=== PATIENT | female | born 1970 | race Caucasian/White ===

== ENCOUNTER 2018-10-21 05:47 | Observation (INO) | payer BC, OTHER ==
[2018-10-14 12:16] VITALS: BMI 28.5
[2018-10-21] MEDS ORDERED: LIDOCAINE 1% 20 ML VIAL (10MG/ML) FOR IV START INTRADERMA ONE ×2 (06:40)
[2018-10-21] MEDS ORDERED: LACTATED RINGERS 1,000 ML IV ONE ×2 (06:40)
[2018-10-21] MEDS ORDERED: DEXAMETHASONE SOD PHOSPHATE 10 MG/ML 1 ML VIAL IV ONE (06:50)
[2018-10-21] MEDS ORDERED: SCOPOLAMINE 1.5MG/72HR PATCH TRANSDERM ONE (06:50)
[2018-10-21] MEDS ORDERED: ONDANSETRON 4 MG/2 ML VIAL IVP ONE ×2 (06:50→09:31)
--- NOTE | 2018-10-21 07:10 | P.HPOB ---
History of Present Illness H&P Date: 10/21/18 Chief Complaint: breast cancer 48 year old presents for total laparoscopic hysterectomy bilateral salpingo-oopherectomy with da mary and diagnostic cystoscopy. Review of Systems All systems: negative Constitutional: Denies chills, Denies fever Eyes: denies blurred vision, denies pain Ears, nose, mouth and throat: Denies headache, Denies sore throat Cardiovascular: Denies chest pain, Denies shortness of breath Respiratory: Denies cough Gastrointestinal: Denies abdominal pain, Denies diarrhea, Denies nausea, Denies vomiting Genitourinary: Denies dysuria, Denies hematuria Musculoskeletal: Denies myalgias Integumentary: Denies pruritus, Denies rash Neurological: Denies numbness, Denies weakness Psychiatric: Denies anxiety, Denies depression Endocrine: Denies fatigue, Denies weight change Past Medical History Past Medical History: Cancer, Deep Vein Thrombosis (DVT), Hypertension Additional Past Medical History / Comment(s): Hx SF blood clot leg 2017. Hx Breast CA, had chemo & radiation 2017; neuropathy fingers/toes. Hx HTN, no Rx since 2017. Varicose Veins. Hx Low K+, takes Klor-Con, family hx of this also. History of Any Multi-Drug Resistant Organisms: None Reported Past Surgical History: Breast Surgery, Section, Orthopedic Surgery Additional Past Surgical History / Comment(s): Exc Cyst Rt Wrist. Rt Lumpectomy. Past Anesthesia/Blood Transfusion Reactions: Motion Sickness, Postoperative Nausea & Vomiting (PONV) Smoking Status: Former smoker - Past Family History Father Sister(s) Family Medical History: Cancer Additional Family Medical History / Comment(s): father - bladder, sister - breast Medications and Allergies Home Medications Medication Instructions Recorded Confirmed Type Cholecalciferol [Vitamin D3] 400 unit PO DAILY 10/14/18 10/14/18 History Gabapentin [Neurontin] 300 mg PO BID 10/14/18 10/14/18 History Hydrochlorothiazide [Hydrodiuril] 25 mg PO DAILY 10/14/18 10/15/18 History Letrozole [Femara] 2.5 mg PO DAILY 10/14/18 10/14/18 History Lupron Inj (Unknown Dose) 1 injection INJ Q90D 10/14/18 History Potassium Chloride [Klor-Con M15] 30 meq PO TID 10/14/18 10/14/18 History Vitamin B-6 (Unknown Dose) 1 tab PO DAILY 10/14/18 History Zoledronic Acid [Zometa] 0 mg INJ Q180D 10/14/18 10/14/18 History Allergies Allergy/AdvReac Type Severity Reaction Status Date / Time amoxicillin Allergy Rash/Hives Verified 10/21/18 06:20 ciprofloxacin [From Cipro] Allergy Rash/Hives Verified 10/21/18 06:20 clarithromycin [From Biaxin] Allergy Rash/Hives Verified 10/21/18 06:20 clavulanic acid Allergy Rash/Hives Verified 10/21/18 06:20 [From Augmentin] nitrofurantoin Allergy Rash/Hives Verified 10/21/18 06:20 [From Macrobid] Sulfa (Sulfonamide Allergy Rash/Hives Verified 10/21/18 06:20 Antibiotics) Exam Osteopathic Statement: *. No significant issues noted on an osteopathic structural exam other than those noted in the History and Physical/Consult. Intake and Output 10/20/18 10/21/18 10/21/18 22:59 06:59 14:59 Other: Weight 91.5 kg Heart: RRR Lungs: CTAB Abdomen: soft, nontender Extremeties: neg isaías's Results Result Diagrams: 10/21/18 06:40 Assessment and Plan (1) Breast cancer Current Visit: Yes Status: Acute Code(s): C50.919 - MALIGNANT NEOPLASM OF UNSP SITE OF UNSPECIFIED FEMALE BREAST SNOMED Code(s): 408203341 Plan: 1. [facility] with sae hernandez, diagnostic cystoscopy, possible [facility]SO
[2018-10-21] MEDS ORDERED: SUCCINYLCHOLINE CHLORIDE 100 MG/5 ML SYR IV ONE (07:25)
[2018-10-21] MEDS ORDERED: PROPOFOL 10 MG/ML 20 ML VIAL IV ONE (07:25)
[2018-10-21] MEDS ORDERED: ROCURONIUM BROMIDE 10 MG/ML 10 ML VIAL IV ONE (07:25)
[2018-10-21] MEDS ORDERED: KETOROLAC 30 MG/ML 1 ML VIAL ONE (07:25)
[2018-10-21] MEDS ORDERED: MIDAZOLAM 2 MG/2 ML VIAL ONE (07:25)
[2018-10-21] MEDS ORDERED: fentaNYL (PF) 50 MCG/ML 2 ML AMP ONE (07:25)
[2018-10-21] MEDS ORDERED: HYDROmorphone (PF) 1 MG/ML ONE (07:25)
[2018-10-21] MEDS ORDERED: BUPIVACAINE (PF) 0.25% 30 ML VIAL SQ ONE (07:55)
--- NOTE | 2018-10-21 09:06 | P.OP ---
Date of Procedure: 10/21/18 Preoperative Diagnosis: 1. Breast cancer-ER/IN+ Postoperative Diagnosis: 1. Breast cancer-ER/IN+ Procedure(s) Performed: Total Laparoscopic Hysterectomy Bilateral Salpingo-oopherectomy using da sammi and diagnostic cystoscopy Anesthesia: BRENDA Surgeon: Nathalie Armenta Digital Media Sales Consultant #1: Sumeet Patrick Estimated Blood Loss (ml): 10 IV fluids (ml): 1,000 Urine output (ml): 75 Pathology: other (Uterus, cervix, bilateral tubes and ovaries) Condition: stable Disposition: PACU Operative Findings: Normal appearing uterus, tubes, ovaries. Description of Procedure: Patient taken the operating room where general anesthesia was obtained without difficulty. She is prepped and draped in normal sterile fashion dorsal lithotomy position, legs placed in the Vicente stirrups. Weighted speculum placed in the vagina and the anterior lip the cervix was grasped with single-tooth tenaculum. The uterus sounded to 6 cm and the cervix diameter was 3 cm. The appropriate manipulator tip and ring were placed on the Zeinab manipulator. The Zeinab manipulator was then placed in the uterus. Betancourt catheter was also placed. Attention was then turned to the abdomen and gloves were changed. A 5 mm s upraumbilical incision was made the scalpel and a 5 mm optical trocar was placed under direct visualization. 10 cm to the right of this and 2 cm down a 5 mm incision was made and 8 mm da Sammi port was placed under direct visualization. Same measurements on the opposite side of the patient's abdomen, the 5 mm incision was made and 8 mm da Sammi port was placed under direct visualization. In the left upper quadrant a 10 mm incision was made and a 10 mm optical trocar was placed under direct visualization. The 5 mm optical trocar was then replaced with the 8 mm da Sammi camera port. The robot was docked on patient's right side. The camera was introduced and then the monopolar curved scissor and [place] bipolar placed under direct visualization. I broke scrub and went to the physician console. The left infundibulopelvic ligament was cauterized with the [place] bipolar and cut with monopolar curved scissors. The left round ligament was cauterized with the [place] bipolar and cut with monopolar curved scissors. The posterior leaf of the broad ligament was taken down using the monopolar curved scissors. Anterior leaf of the broad ligament was then taken down using the monopolar curved scissors. The uterine artery was cauterized with the [place] bipolar and cut with monopolar curved scissors. The bladder flap was then started using the monopolar curved scissors. Attention was then turned to the right side of the patient's anatomy and the right infundibular pelvic ligament was cauterized with the [place] bipolar and cut with monopolar curved scissors. The right round ligament was cauterized with the [place] bipolar and cut with monopolar curved scissors. Posterior leaf of the broad ligament was taken down using the monopolar curved scissors and the anterior leaf was taken down using the monopolar curved scissors. The uterine artery was cauterized the [place] bipolar cut with monopolar curved scissors. The bladder flap was then finished on this side. Anterior colpotomy was made using the monopolar curved scissors. The rest of the uterus was from the vaginal cuff by following the ring around with the monopolar curved scissors through the uterosacral ligaments back to the anterior portion. Once the uterus and cervix were amputated they were pulled through the vaginal cuff. Hemostasis was assured. The instruments were changed for the Cardier forcep and the etienne suture cut. The vaginal cuff was then closed using O stratafix barbed suture in a running fashion. Hemostasis was again assured and the pelvis was irrigated. All instruments were removed from the abdomen and the robot was undocked. I scrubbed back in to perform a cystoscopy. There were jets from both ureteral orifices. The abdominal incisions were closed with 4-0 Vicryl in a subcuticular fashion. Patient tolerated the procedure well, sponge and instrument counts correct 2 and she was taken to recovery room in stable condition condition
[2018-10-21] MEDS ORDERED: ONDANSETRON 4 MG/2 ML VIAL IVP PRN (09:15)
[2018-10-21] MEDS ORDERED: Acetaminophen-Codeine 300-30mg TAB PO PRN ×2 (09:15)
[2018-10-21] MEDS ORDERED: ZOLPIDEM 5 MG TAB PO PRN (09:15)
[2018-10-21] MEDS ORDERED: SIMETHICONE 80 MG CHEWABLE PO PRN (09:15)
[2018-10-21] MEDS ORDERED: METOCLOPRAMIDE 5 MG/ML 2 ML VIAL IVP PRN (09:15)
[2018-10-21] MEDS ORDERED: diphenhydrAMINE 50 MG/ML 1 ML VIAL IVP PRN (09:15)
[2018-10-21] MEDS ORDERED: IBUPROFEN 600 MG TAB PO PRN (09:15)
[2018-10-21] MEDS: HYDROmorphone 1 MG/ML 1 ML SYRINGE IVP ONE ×2 (09:31→09:40)
[2018-10-21] MEDS: KETOROLAC 30 MG/ML 1 ML VIAL IVP PRN ×2 (14:00→19:23)
[2018-10-21] MEDS: POTASSIUM CHLORIDE ER 10 MEQ TAB.ER.PRT PO SCH ×2 (17:28→21:57)
[2018-10-21] MEDS: SENNOSIDES-DOCUSATE SODIUM 1 EACH TAB PO SCH (20:29)
[2018-10-21] MEDS: GABAPENTIN 300 MG CAP PO SCH (20:29)
[2018-10-22] MEDS: KETOROLAC 30 MG/ML 1 ML VIAL IVP PRN (04:48)
[2018-10-22 07:45] VITALS: BP 104/68; PULSE 76; RESP 16; TEMP 98
[2018-10-22] MEDS: SENNOSIDES-DOCUSATE SODIUM 1 EACH TAB PO SCH (08:15)
[2018-10-22] MEDS: GABAPENTIN 300 MG CAP PO SCH (08:15)
[2018-10-22] MEDS: POTASSIUM CHLORIDE ER 10 MEQ TAB.ER.PRT PO SCH (08:15)
[2018-10-22 08:16] LABS: Basophils % (A) 0 %; Eosinophils # (A) 0.1 k/uL (0-0.7); Eosinophils % (A) 1 %; HCT 36.2 % (34.0-46.0); HGB 11.9 gm/dL (11.4-16.0); Lymphocytes # (A) 1.6 k/uL (1.0-4.8); Lymphocytes % (A) 13 %; MCH 29.8 pg (25.0-35.0); MCHC 32.8 g/dL (31.0-37.0); MCV 90.9 fL (80.0-100.0); Mean Platelet Volume 7.1; Monocytes # (A) 0.5 k/uL (0-1.0); Monocytes % (A) 4 %; Neutrophils # (A) 9.9 k/uL (1.3-7.7); Neutrophils % (A) 81 %; Platelet Count 195 k/uL (150-450); RBC 3.99 m/uL (3.80-5.40); RDW 13.6 % (11.5-15.5); WBC 12.2 k/uL (3.8-10.6)
--- NOTE | 2018-10-22 08:55 | P.DS ---
Providers Date of admission: 10/22/18 00:19 Expected date of discharge: 10/22/18 Attending physician: Nathalie Armenta Primary care physician: Mike Crawfordt - Discharge Diagnosis(es) (1) Breast cancer Current Visit: Yes Status: Acute Hospital Course: Patient presented for total laparoscopic hysterectomy bilateral salpingo- oophorectomy with da Sammi. She underwent this procedure without crepitation. Postoperatively her pain has been controlled with Toradol. She is ambulating and voiding without difficulty. She is tolerating regular diet. Incisions are clean, dry, intact. She denies nausea, vomiting, chest pain, shortness of breath or calf pain. She'll be discharged home postoperative day #1 in stable condition to follow-up with me in 3 weeks. Plan - Discharge Summary Discharge Rx Participant: Yes New Discharge Prescriptions: No Action Potassium Chloride [Klor-Con M15] 30 meq PO TID Zoledronic Acid [Zometa] 4 mg IV Q180D Cholecalciferol [Vitamin D3] 400 unit PO DAILY Hydrochlorothiazide [Hydrodiuril] 25 mg PO DAILY Vitamin B-6 (Unknown Dose) 1 tab PO DAILY Lupron Inj (Unknown Dose) 1 injection INJ Q90D Letrozole [Femara] 2.5 mg PO DAILY Gabapentin [Neurontin] 300 mg PO BID Discharge Medication List Cholecalciferol [Vitamin D3] 400 unit PO DAILY 10/14/18 [History] Gabapentin [Neurontin] 300 mg PO BID 10/14/18 [History] Hydrochlorothiazide [Hydrodiuril] 25 mg PO DAILY 10/14/18 [History] Letrozole [Femara] 2.5 mg PO DAILY 10/14/18 [History] Lupron Inj (Unknown Dose) 1 injection INJ Q90D 10/14/18 [History] Potassium Chloride [Klor-Con M15] 30 meq PO TID 10/14/18 [History] Vitamin B-6 (Unknown Dose) 1 tab PO DAILY 10/14/18 [History] Zoledronic Acid [Zometa] 4 mg IV Q180D 10/14/18 [History] Patient Instructions/Handouts: *Surgery [facility] - Scopalamine Patch Instructions
[2018-10-22] MEDS ORDERED: LETROZOLE 2.5 MG TAB PO SCH (09:00)
[2018-10-22] MEDS ORDERED: HYDROCHLOROTHIAZIDE 25 MG TAB PO SCH (09:00)
== END 2018-10-22 11:04 | disposition home or self-care (01) ==
LOC: OR 05:47 → 4SSUR 09:23 → OR 23:43 → 4SSUR 10-22 00:19
PROVIDERS: ADMIT Obstetrics & Gynecology; ATTEND Obstetrics & Gynecology
DX: C50.919 Malignant neoplasm of unspecified site of unspecified female breast (principal); Z17.0 Estrogen receptor positive status [ER+]; N85.8 Other specified noninflammatory disorders of uterus; N83.202 Unspecified ovarian cyst, left side; N83.201 Unspecified ovarian cyst, right side; I10 Essential (primary) hypertension; G62.9 Polyneuropathy, unspecified; I83.90 Asymptomatic varicose veins of unspecified lower extremity; E87.6 Hypokalemia; Z79.899 Other long term (current) drug therapy; Z79.811 Long term (current) use of aromatase inhibitors; Z88.0 Allergy status to penicillin; Z88.1 Allergy status to other antibiotic agents; Z88.2 Allergy status to sulfonamides; Z88.8 Allergy status to other drugs, medicaments and biological substances; Z87.891 Personal history of nicotine dependence; Z86.718 Personal history of other venous thrombosis and embolism; Z92.3 Personal history of irradiation; Z92.21 Personal history of antineoplastic chemotherapy; Z80.52 Family history of malignant neoplasm of bladder; Z80.3 Family history of malignant neoplasm of breast; Z83.49 Family history of other endocrine, nutritional and metabolic diseases
CPT/HCPCS: 58552; S2900; 36415; 81025; 84132; 85025; 86850; 86900; 86901; 88307